=== PATIENT | female | born 1990 | race Caucasian/White ===

== ENCOUNTER 2017-04-03 15:54 | Inpatient (IN) ==
[2017-04-03] MEDS ORDERED: Naloxone 0.4 MG/ML INJ IVP PRN (16:11)
[2017-04-03] MEDS ORDERED: Ondansetron 4 MG/2 ML VIAL IVP PRN (16:11)
[2017-04-03] MEDS ORDERED: Famotidine 20 MG/2 ML VIAL IVP PRN (16:11)
[2017-04-03] MEDS ORDERED: *HR* Nalbuphine 20 MG/ML AMPUL IVP PRN (16:11)
[2017-04-03] MEDS ORDERED: miSOPROStol 25 MCG TABLET PO PRN (16:25)
[2017-04-03 17:40] LABS: Basophils % 0.3 %; Eosinophils # 0.1 K/mcL (0.0-0.6); Eosinophils % 0.7 %; Hemoglobin 11.3 g/dL (11.5-15.4); Immature Granulocytes % 0.3 % (0-4); Lymphocytes # 1.8 K/mcL (0.6-4.6); Lymphocytes % 23.5 %; Mean Corpuscular HGB Conc 34.2 g/dL (31.6-35.5); Mean Corpuscular Hemoglobin 29.7 pg (28.0-33.3); Mean Corpuscular Volume 86.8 fL (83.0-100.0); Mean Platelet Volume 11.2 fL (9.4-12.4); Monocytes # 0.6 K/mcL (0.0-1.3); Monocytes % 7.2 %; Neutrophils # 5.2 K/mcL (1.6-8.9); Platelet Count 225 K/mcL (140-400); Red Cell Distribution Width 11.9 % (11.5-14.5)
--- NOTE | 2017-04-03 17:47 | OB/GYN History & Physical ---
Date of Encounter: 04/03/17 Time of Encounter: 17:42 Assessment and Plan (1) Elective induction of labor planned Current visit: Yes Status: Acute Patient is here for Induction of Labor due to gestational diabetes. Induction with cytotec and fulton placed by CNM CBC UDS LR 125ml/hr Glucose checks q4hrs Continue monitoring, (2) 38 weeks gestation of Current visit: Yes Status: Acute Patient is 38w1d (3) Gestational diabetes Current visit: Yes Status: Acute Patient has gestational diabetes. States that it has been well controlled. Takes Glyburide POC glucose checks q4hrs Qualifiers: Gestational diabetes mellitus control: oral hypoglycemic-controlled Trimester: third trimester Qualified Code(s): O24.415 - Gestational diabetes mellitus in , controlled by oral hypoglycemic drugs History of Present Illness Chief complaint: Induction of Labor HPI: Ms. Tenorio is a 26 year old female at 38w1d presents to labor and delivery for induction of labor. Patient states that the has been complicated by uncontrolled gestational diabetes. States that she was seen at [facility] and they recommended insulin and pt refused. [facility] states due to lack of glucose control they recommend that she deliver at 38 weeks. Patient denies any contractions, vaginal bleeding, loss of fluid or discharge. Reports good movement. She states that she has been checking her blood sugar and the majority of them have been at goal or below. Reports most recent blood sugar of 107. States that the induction was scheduled by Dr. Perez and Dr. Mckoy. Blood type O negative GBS negative Rubella IgG antibody Positive VZV IgG Antibody Positive All other serologies negative Past Med Surg Social Fam HX - Past Medical History Medical history: no medical history, other (Fracture of her neck when she was 17 ) Psychiatric history: depression - Social History Smoking Status: Former smoker Smokeless Tobacco Status: No Alcohol use: none Drug use: none - Family History Mother Hx Family Musculoskeletal Disorders: Yes (neck surgery) Obstetrical History - Pregnancies : 1 Para: 0 Term: 0 : 0 Ab's: 0 Livin - History/Complications History/Complications: Patient has gestational diabetes and takes glyburide. reports that he blood sugar has been well controlled. Medications and Allergies Citalopram [CeleXA] 20 mg PO DAILY 04/03/17 [History] Vit/Iron Fumarate/FA [ Tablet] 04/03/17 [History] glyBURIDE [GlyBURIDE] 3.75 mg PO 2200 04/03/17 [History] 3 Allergy/AdvReac Type Severity Reaction Status Date / Time No Known Allergies Allergy Verified 04/03/17 17:09 Review of System OB All systems PM: reviewed and no additional remarkable complaints except as stated Exam - Constitutional Constitutional: well developed, well nourished, no acute distress, average body habitus - HEENT HEENT: Normocephaly, Mucus Membranes Moist - Neck Neck exam: full ROM, normal inspection - Lungs Respiratory exam: CTAB - Cardiovascular Cardiovascular exam: RRR, +S1, +S2 - Abdomen Abdomen: Present: bowel sounds normal, gravid, non tender - Extremities Extremities exam: full ROM, normal capillary refill, normal inspection - Vagina Vagina: Present: normal moisture - Cervix Dilation: 1 (Per bird tender) Effacement: 25 (Per Chief Vendor Quality) Station: -3 (Per Chief Vendor Quality) - Anus/Rectum Anus/Rectum: Present: normal perianal skin Results Result Diagrams: 04/03/17 17:36 04/03/17 17:36 Abnormal lab results RBC 3.80 M/mcL (3.82-4.97) L 04/03/17 17:36 Hgb 11.3 g/dL (11.5-15.4) L 04/03/17 17:36 Hct 33.0 % (35.3-44.9) L 04/03/17 17:36 All other labs normal. - VTE Reasons for not Prescribing Prophylaxis: Treatment not Indicated - Low risk for VTE
[2017-04-03 18:03] LABS: Amphetamine Screen,Urine Negative ng/mL (Cutoff=1000); Barbiturate Screen,Urine Negative ng/mL (Cutoff=200); Benzodiazepines Screen,Urine Negative ng/mL (Cutoff=200); Cannabinoid Screen,Urine Negative ng/mL (Cutoff = 50); Cocaine Screen,Urine Negative ng/mL (Cutoff= 300); Opiate Screen,Urine Negative ng/mL (Cutoff=300); Phencyclidine Screen,Urine Negative ng/mL (Cutoff=25)
--- NOTE | 2017-04-03 19:46 | OB Labor Progress Note ---
Date of Encounter: 04/03/17 Time of Encounter: 19:44 Labor Progress Note - Subjective Subjective: Pt starting to feel some cramping - Cervix Cervix: cervical fulton remains in place - Heart Tones Heart Tones: 135/moderate/+accels/-decels - Kenney Kenney: rare - Plan Plan: Continue current management Anticipate
[2017-04-03] MEDS ORDERED: D5% in Lactated Ringers 1,000 ML IVC SCH (23:15)
--- NOTE | 2017-04-03 23:21 | OB Labor Progress Note ---
Date of Encounter: 04/03/17 Time of Encounter: 23:19 Labor Progress Note - Subjective Subjective: Pt states feeling some cramping but otherwise comfortable. - Vital Signs Vital Signs: Blood glucose 78, LR was not started by nursing staff, will start D5LR - Cervix Cervix: Cervical fulton remains in place - Heart Tones Heart Tones: 135/moderate/-accels/-decels - Addy Addy: 3-5 - Plan Plan: Continue current management. Give 50mcg cytotec if contractions space out fulton removal at 0600 if not expelled Start D5LR@75 recheck glucose in 2 hours. anticipate
[2017-04-03] MEDS ORDERED: D5% in Lactated Ringers 1,000 ML IVC ONE (23:24)
[2017-04-04] MEDS ORDERED: Oxytocin 20 units/ LR 1000 mL 20 UNIT/1,000 ML BAG IVC ONE (00:29)
[2017-04-04] MEDS ORDERED: Oxytocin 20 units/ LR 1000 mL 20 UNIT/1,000 ML BAG IVC SCH ×2 (00:45→20:49)
[2017-04-04] MEDS ORDERED: D5% in Lactated Ringers 1,000 ML IVC SCH (05:59)
[2017-04-04] MEDS ORDERED: Ringers Solution, Lactated 1,000 ML IVC SCH ×2 (06:00→20:49)
[2017-04-04] MEDS: Ringers Solution, Lactated 1,000 ML IVC SCH ×2 (06:17→14:38)
--- NOTE | 2017-04-04 06:59 | OB Labor Progress Note ---
Date of Encounter: 04/04/17 Time of Encounter: 06:57 Labor Progress Note - Subjective Subjective: Pt states she feels stronger contractions - Cervix Cervix: 4/50/-2 - Heart Tones Heart Tones: 13/moderate/-accels/-decels - Pillow Pillow: q2 - Plan Plan: Continue pitocin per policy Nubain and Epidural as desired Anticipate
--- NOTE | 2017-04-04 08:10 | Anesthesia Evaluation PreOp ---
Date of Encounter: 04/04/17 Time of Encounter: 08:04 - Past History Planned Operation: vaginal del, Cardiac History: Arrhythmia (SA, cardiac workup was negative in the beginning of preg..METs > 4 without comp.) Pulmonary History: Denies Any Significant HX COST RECORDER History: Denies Any Significant HX Other Medical History: Other (gestational DM, oral meds currently) Anesthesia History: No Prior Anesthetic Complications Alcohol Use: none Drug use: none Medications and Allergies Citalopram [CeleXA] 20 mg PO DAILY 04/03/17 [History] Vit/Iron Fumarate/FA [ Tablet] 04/03/17 [History] glyBURIDE [GlyBURIDE] 3.75 mg PO 2200 04/03/17 [History] 3 Allergy/AdvReac Type Severity Reaction Status Date / Time No Known Allergies Allergy Verified 04/03/17 17:09 Anesthesia Results - Labs 04/03/17 17:36 04/03/17 17:36 Anesthesia Exam - HEENT Pupil (Motor): Pupils equal Mallampati: I Teeth: Normal Oral Opening: Greater than 3 - COST RECORDER LOC: Oriented COST RECORDER Motor: Normal RUE, Normal LUE, Normal RLE, Normal LLE, Normal Face COST RECORDER Sensory: Normal: RUE, LUE, RLE, LLE, Face - Cardiac Rhythm: Regular Murmur: None - Pulmonary Breath Sounds: bilateral Clear Respiratory Effort: Symmetrical Anesthesia Assess/Plan ASA Score: 2 Modified [place] Scale for Level of Consciousness: Cooperative, oriented, and tranquil Anesthetic Plan: General, Regional Monitoring Plan: Standard Monitors
--- NOTE | 2017-04-04 10:13 | OB Labor Progress Note ---
Date of Encounter: 04/04/17 Time of Encounter: 10:11 Labor Progress Note - Subjective Subjective: Patient doing well. Discussed POC with patient. Patient denies any questions or concerns. - Heart Tones Heart Tones: 135 bpm moderate variability +15x15 accels noted no decels noted. Cat. 1 tracing. - [place]: 2-3 min apart - Interventions Interventions: Discussed POC, discontinued D5LR at this time. - Plan Plan: Continue labor management.
--- NOTE | 2017-04-04 11:50 | OB Labor Progress Note ---
Date of Encounter: 04/04/17 Time of Encounter: 11:48 Labor Progress Note - Subjective Subjective: Patient doing well. Denies any questions or concerns. Discussed POC with patient. - Cervix Cervix: 4.5/80/-1 - Heart Tones Heart Tones: 135 bpm moderate variability +15x15 accels no decels noted. Cat 1 tracing - [place]: 2-3 min apart - Interventions Interventions: SVE, AROM copious amount of clear fluid noted. Patient tolerated well - Plan Plan: Continue labor management
[2017-04-04] MEDS ORDERED: Epidural Premix (fent/bupiv) 110 ML EP ONE (14:45)
[2017-04-04] MEDS ORDERED: EPHEDrine 50 MG/ML VIAL ONE (15:10)
--- NOTE | 2017-04-04 15:13 | Anesthesia Procedures ---
Date of Encounter: 04/04/17 Time of Encounter: 14:57 Procedures: Anesthesia - Epidural/Spinal Patient ID/Chart reviewed: Yes Patient examined: Yes OB Eval: Gestational age: term OB Eval: : 1 OB Eval: Hx Para: 0 OB Eval: Contractions: Non-stressed pattern Consent Obtained: Yes Supplemental Oxygen: None/Room Air Site Prep: Aseptic Technique, Sterile prep and drape, 0.5% Chlorhexidine/Alcohol Patient position: upright Local Anesthetic: Lidocaine 1% Amount of Local Anesthetic used: 2 Touhy Needle Gauge: 18 Touhy Needle Depth (cm): 5 Catheter Depth at Skin (cm): 10 Test Dose (1.5% Lido + Epi): Volume given (mls): 3 Test Dose Result: Negative Loading Dose: Other: 10ml from solution Loading Dose Administered: Thru Catheter Infusion Med: 0.125% Bupivacaine w/ 2 mcg/ml Fentanyl Infusion Rate (mls/hr): [address]: Tegaderm, Tape Interspace Used: L3-L4 Loss of Resistance (SOMMER): Yes (saline) Blood: No CSF: No Paresthesia: No Procedure: vss though out procedure, FHR stable per rn's
[2017-04-04] MEDS ORDERED: *HR* Oxytocin 10 UNIT/ML VIAL IM ONE ×2 (16:28→16:40)
[2017-04-04] MEDS ORDERED: *HR* Morphine Sulfate/PF 5 MG/10 ML AMPUL ONE (16:31)
[2017-04-04] MEDS ORDERED: Ondansetron 4 MG/2 ML VIAL ONE (16:38)
[2017-04-04] MEDS ORDERED: Lidocaine/EPI 1:200k 2% PF 20 ML VIAL ONE ×2 (16:59→17:00)
[2017-04-04] MEDS ORDERED: Ringers Solution, Lactated 1,000 ML ONE (17:02)
[2017-04-04] MEDS ORDERED: *HR* Promethazine 25 MG/ML VIAL IVP PRN (17:18)
[2017-04-04] MEDS ORDERED: *HR* HYDROmorphone (PF) 1 MG/ML SYRINGE IVP PRN ×3 (17:18→20:49)
--- NOTE | 2017-04-04 17:32 | OB/GYN Procedure Note ---
Section - Date of procedure: 04/04/17 Preop diagnosis: category 2 FHT tracing Post-op diagnosis: same (Nuchal 2 tight) Procedure: primary low transverse Surgeon: Wojciech Mckoy Estimated blood loss (cc): 500 Anesthesiologist: Darwin Michel Anesthesia Type: Epidural section complications: none Disposition: PACU Specimens: Placenta - (s) A Delivery Date: 04/04/17 Infant Delivery Time: 16:31 Presentation: vertex Position: MAGGIE Gender: Male Viability: Viable Pounds: 7 Ounces: 7 at 1 minute: 8 at 5 minutes: 9 Placenta: complete extraction Cord: nuchal cord (x 2 ; tight) - Narrative Narrative: Patient was taken to the operating room. After satisfactory epidural anesthesia was achieved, she was prepped and draped in usual manner. After appropriate timeout, abdomen was entered through standard Maylard incision. The Jayla retractor was placed. The peritoneum overlying the lower uterine segment was incised in U-shaped fashion. Uterine cavity was entered sharply and extended laterally. With fundal pressure the head was delivered. suctioned upon delivery of the head. Nuchal cord was relieved 2. The remainder of the infant was delivered. The umbilical cord was doubly clamped and cut and baby was handed to nursery staff for further evaluation. Placenta was removed as pathology for analysis. Uterus was closed in single layer using 0 Monocryl. After assurance of hemostasis, the abdomen was closed in standard fashion using 0 Vicryl in the fascia and 3-0 Monocryl in the skin. Sterile dressing was applied. Patient did well was taken to recovery room in satisfactory condition. Counts were correct.
[2017-04-04] MEDS ORDERED: *HR* Morphine 2 MG/ML SYRINGE IVP PRN ×2 (18:42→20:49)
--- NOTE | 2017-04-04 18:47 | Anesthesia Evaluation Post Op ---
Date of Encounter: 04/04/17 Time of Encounter: 18:41 - Vital Signs Vital Signs: vss - Lungs Lungs: Clear Ascult./Percussion - Airway Airway: Non-obstructed - Mental Status Mental Status: Alert & Oriented, Answers Appropriately - Pain Pain Scale used: Arpit (Faces) - Nausea Vomiting Nausea Vomiting: Not Present - Hydration Hydration: Esposito catheter - Discharge PostOp Status: Transfer Patient to floor
[2017-04-04] MEDS ORDERED: Metoclopramide 10 MG/2 ML VIAL IVP PRN (20:49)
[2017-04-04] MEDS ORDERED: Rho Immune Globulin 1,500 UNIT SYRINGE IM ONE (20:49)
[2017-04-04] MEDS ORDERED: Naloxone 0.4 MG/ML INJ IVP PRN (20:49)
[2017-04-04] MEDS ORDERED: Simethicone 80 MG TAB.CHEW PO PRN (20:49)
[2017-04-04] MEDS ORDERED: Ondansetron 4 MG/2 ML VIAL IVP PRN ×2 (20:49)
[2017-04-04] MEDS ORDERED: Sennosides 8.6 MG TABLET PO PRN (20:49)
[2017-04-04] MEDS: Ibuprofen 600 MG TABLET PO PRN (21:59)
[2017-04-04] MEDS ORDERED: *HR* GlyBURIDE 2.5 MG TABLET PO SCH (22:00)
[2017-04-05] MEDS: *HR* OxyCODONE/APAP 5/325 TABLET PO PRN ×2 (00:58→21:49)
[2017-04-05 04:47] LABS: Basophils % 0.2 %; Eosinophils % 0.2 %; Hematocrit 24.3 % (35.3-44.9); Hemoglobin 8.3 g/dL (11.5-15.4); Immature Granulocytes % 0.2 % (0-4); Lymphocytes # 1.7 K/mcL (0.6-4.6); Lymphocytes % 20.6 %; Mean Corpuscular HGB Conc 34.2 g/dL (31.6-35.5); Mean Corpuscular Hemoglobin 30.1 pg (28.0-33.3); Mean Platelet Volume 10.9 fL (9.4-12.4); Monocytes # 0.6 K/mcL (0.0-1.3); Monocytes % 7.3 %; Neutrophils # 5.9 K/mcL (1.6-8.9); Platelet Count 156 K/mcL (140-400); Red Blood Count 2.76 M/mcL (3.82-4.97); Red Cell Distribution Width 12.1 % (11.5-14.5); Segmented Neutrophils % 71.5 %
[2017-04-05] MEDS: Ibuprofen 600 MG TABLET PO PRN ×2 (05:16→14:00)
--- NOTE | 2017-04-05 08:15 | OB/GYN Progress Note ---
Date of Encounter: 04/05/17 Time of Encounter: 08:13 - Assessment and Plan (1) S/P section Current Visit: Yes Status: Acute Patient is S/P C section POD #1. Viable male was delivered at 1631 on 04/04/17. Patient states that she is feeling pretty good today. States that she has only taken a few steps today otherwise she has been sleeping. States that she has only eaten a few cracker and has been drinking water. Tolerating PO without issues. Denies urination since her catheter was taken out. Denies flatus or having a bowel movement. Report that she is still having some vaginal bleeding. States that she plans to breast feed. Encourage ambulation as tolerated PO intake as tolerated Pain well managed on po pain medication Anticipate DC tomorrow. (2) Gestational diabetes Current Visit: Yes Status: Acute Patient had gestational diabetes. Most recent poc glucose was 73. Discontinue the oral hypoglycemic medications Qualifiers: Gestational diabetes mellitus control: oral hypoglycemic-controlled Trimester: third trimester Qualified Code(s): O24.415 - Gestational diabetes mellitus in , controlled by oral hypoglycemic drugs (3) Anemia, Current Visit: Yes Status: Acute Patient has a Hgb of 8.3 Ferrous sulfate has been ordered Subjective - Subjective Principal diagnosis: S/P C Section Delivery Interval history: Patient is S/P day 1 from a C section. Viable male was delivered at 1631 on 04/09. Patient states that she is feeling pretty good today. States that she has only taken a few steps today otherwise she has been sleeping. States that she has only eaten a few cracker and has been drinking water. Tolerating PO without issues. Denies urination since her catheter was taken out. Denies flatus or having a bowel movement. Report that she is still having some vaginal bleeding. States that she plans to breast feed Patient reports: appetite normal (Has only eaten a few crackers, now has eaten pancakes ), pain well controlled, no voiding normally (Has not voided since catheter has been taken out), no ambulating normally, no nauseated [place]: doing well Objective - Vital Signs Latest vital signs: Vital Signs Temp Pulse Resp BP Pulse Ox 04/05/17 05:10 98.2 F 89 14 101/61 97 04/04/17 22:15 98.0 F 86 14 108/63 97 04/04/17 21:15 98.2 F 88 14 112/61 96 04/04/17 20:15 97.9 F 89 14 104/57 97 04/04/17 19:45 97.7 F 87 14 106/64 98 04/04/17 19:15 98.3 F 87 16 116/75 98 Intake and Output 04/04/17 04/05/17 04/05/17 23:59 07:59 15:59 Intake Total 600 / 600 Output Total 350 / 350 325 / 325 Balance -350 / -350 275 / 275 Intake: Oral 600 / 600 Output: Catheter 350 / 350 325 / 325 Other: Weight 116.3 kg 80.399 kg Blood Glucose* 135 Patient Weight 04/05/17 23:59 Weight 80.399 kg - Exam Lungs: bilateral: normal Chest: Normal S1, Normal S2 Extremities: Present: normal. Absent: tenderness Abdomen: Present: normal appearance, soft Incision: Present: dry, dressed Uterus: Present: firm Fundal Height: 1 (Below the Umbilicus) - Labs Labs: Laboratory Results - last 24 hr 04/04/17 04/04/17 04/04/17 09:02 13:01 16:22 WBC RBC Hgb Hct MCV MCH MCHC RDW Plt Count MPV Immature Gran % Seg Neutrophils % Lymphocytes % Monocytes % Eosinophils % Basophils % Neutrophils # Lymphocytes # Monocytes # Eosinophils # Basophils # POC Glucose 115 H 109 H 111 H Baby's Blood Type Mother's Blood Type Rhogam Indicated 04/04/17 04/05/17 04/05/17 18:20 01:01 04:31 WBC 8.2 RBC 2.76 L Hgb 8.3 L D Hct 24.3 L MCV 88.0 MCH 30.1 MCHC 34.2 RDW 12.1 Plt Count 156 MPV 10.9 Immature Gran % 0.2 Seg Neutrophils % 71.5 Lymphocytes % 20.6 Monocytes % 7.3 Eosinophils % 0.2 Basophils % 0.2 Neutrophils # 5.9 Lymphocytes # 1.7 Monocytes # 0.6 Eosinophils # 0.0 Basophils # 0.0 POC Glucose 135 H Baby's Blood Type A RH NEGATIVE Mother's Blood Type O RH NEGATIVE Rhogam Indicated NO 04/05/17 07:58 WBC RBC Hgb Hct MCV MCH MCHC RDW Plt Count MPV Immature Gran % Seg Neutrophils % Lymphocytes % Monocytes % Eosinophils % Basophils % Neutrophils # Lymphocytes # Monocytes # Eosinophils # Basophils # POC Glucose 73 Baby's Blood Type Mother's Blood Type Rhogam Indicated
[2017-04-05] MEDS: Prenatal Vit/FA 1 EACH TABLET PO SCH (09:46)
[2017-04-06] MEDS: Ibuprofen 600 MG TABLET PO PRN (06:13)
[2017-04-06 07:51] VITALS: BP 99/69
[2017-04-06] MEDS: *HR* OxyCODONE/APAP 5/325 TABLET PO PRN (09:14)
[2017-04-06] MEDS: Prenatal Vit/FA 1 EACH TABLET PO SCH (09:15)
--- NOTE | 2017-04-06 09:21 | Discharge Summary ---
Date of Encounter: 04/06/17 Time of Encounter: 09:18 - Discharge Diagnosis (1) S/P section Priority: Primary Status: Acute Comments: Patient underwent due to category 2 FHT tracings without complications Incision appears well, no drainage, closed, patient reports pain well controlled Ambulating, tolerating PO, voiding bowel and bladder, and vaginal bleeding is minimal Ibuprofen prn for pain and colace for constipation (2) Depression Priority: Secondary Status: Acute Comments: Patient reports a good mood at this time. Requesting to be placed back on her citalopram for her chronic depression. Qualifiers: Depression Type: unspecified Qualified Code(s): F32.9 - Major depressive disorder, single episode, unspecified (3) Blood glucose elevated Priority: Secondary Status: Acute Comments: Patient has hx of poorly controlled GDM throughout treated with glyburide Patient had elevated blood glucose in 140's this morning and states she hadn't fast prior Discussed with patient plan to do a fasting blood glucose, pending results will place patient on metformin if necessary - Discharge Medications Prescriptions: Ibuprofen [Motrin] 600 mg PO Q6HR PRN #30 tablet PRN Reason: Cramping Breast Pump [BREAST PUMP] 1 each .ROUTE AD #1 each Citalopram [CeleXA] 20 mg PO DAILY #30 tablet Docusate [Colace] 100 mg PO BID PRN #30 capsule PRN Reason: Constipation Ferrous Sulfate 325 mg PO DAILY #60 tablet Home Medications: Vit/Iron Fumarate/FA [ Tablet] 04/03/17 [History] glyBURIDE [GlyBURIDE] 3.75 mg PO 2200 04/03/17 [History] Breast Pump [BREAST PUMP] 1 each .ROUTE AD #1 each 04/06/17 [Rx] Citalopram [CeleXA] 20 mg PO DAILY #30 tablet 04/06/17 [Rx] Docusate [Colace] 100 mg PO BID PRN #30 capsule 04/06/17 [Rx] Ferrous Sulfate 325 mg PO DAILY #60 tablet 04/06/17 [Rx] Ibuprofen [Motrin] 600 mg PO Q6HR PRN #30 tablet 04/06/17 [Rx] Allergies/Adverse Reactions: 3 Allergy/AdvReac Type Severity Reaction Status Date / Time No Known Allergies Allergy Verified 04/03/17 17:09 Data Procedures and tests throughout hospitalization: Laboratory Tests 04/03/17 04/03/17 04/03/17 17:36 17:36 17:36 WBC 7.7 RBC 3.80 L Hgb 11.3 L Hct 33.0 L MCV 86.8 MCH 29.7 MCHC 34.2 RDW 11.9 Plt Count 225 MPV 11.2 Immature Gran % 0.3 Seg Neutrophils % 68.0 Lymphocytes % 23.5 Monocytes % 7.2 Eosinophils % 0.7 Basophils % 0.3 Neutrophils # 5.2 Lymphocytes # 1.8 Monocytes # 0.6 Eosinophils # 0.1 Basophils # 0.0 Glucose 106 H POC Glucose Urine Opiates Screen Negative Ur Barbiturates Screen Negative Ur Phencyclidine Scrn Negative Ur Amphetamines Screen Negative U Benzodiazepines Scrn Negative Urine Cocaine Screen Negative U Marijuana (THC) Screen Negative Baby's Blood Type Mother's Blood Type Rhogam Indicated 04/03/17 04/03/17 04/04/17 18:59 23:03 01:00 WBC RBC Hgb Hct MCV MCH MCHC RDW Plt Count MPV Immature Gran % Seg Neutrophils % Lymphocytes % Monocytes % Eosinophils % Basophils % Neutrophils # Lymphocytes # Monocytes # Eosinophils # Basophils # Glucose POC Glucose 96 H 78 101 H Urine Opiates Screen Ur Barbiturates Screen Ur Phencyclidine Scrn Ur Amphetamines Screen U Benzodiazepines Scrn Urine Cocaine Screen U Marijuana (THC) Screen Baby's Blood Type Mother's Blood Type Rhogam Indicated 04/04/17 04/04/17 04/04/17 05:07 09:02 13:01 WBC RBC Hgb Hct MCV MCH MCHC RDW Plt Count MPV Immature Gran % Seg Neutrophils % Lymphocytes % Monocytes % Eosinophils % Basophils % Neutrophils # Lymphocytes # Monocytes # Eosinophils # Basophils # Glucose POC Glucose 138 H 115 H 109 H Urine Opiates Screen Ur Barbiturates Screen Ur Phencyclidine Scrn Ur Amphetamines Screen U Benzodiazepines Scrn Urine Cocaine Screen U Marijuana (THC) Screen Baby's Blood Type Mother's Blood Type Rhogam Indicated 04/04/17 04/04/17 04/05/17 16:22 18:20 01:01 WBC RBC Hgb Hct MCV MCH MCHC RDW Plt Count MPV Immature Gran % Seg Neutrophils % Lymphocytes % Monocytes % Eosinophils % Basophils % Neutrophils # Lymphocytes # Monocytes # Eosinophils # Basophils # Glucose POC Glucose 111 H 135 H Urine Opiates Screen Ur Barbiturates Screen Ur Phencyclidine Scrn Ur Amphetamines Screen U Benzodiazepines Scrn Urine Cocaine Screen U Marijuana (THC) Screen Baby's Blood Type A RH NEGATIVE Mother's Blood Type O RH NEGATIVE Rhogam Indicated NO 04/05/17 04/05/17 04/05/17 04:31 07:58 11:54 WBC 8.2 RBC 2.76 L Hgb 8.3 L D Hct 24.3 L MCV 88.0 MCH 30.1 MCHC 34.2 RDW 12.1 Plt Count 156 MPV 10.9 Immature Gran % 0.2 Seg Neutrophils % 71.5 Lymphocytes % 20.6 Monocytes % 7.3 Eosinophils % 0.2 Basophils % 0.2 Neutrophils # 5.9 Lymphocytes # 1.7 Monocytes # 0.6 Eosinophils # 0.0 Basophils # 0.0 Glucose POC Glucose 73 107 H Urine Opiates Screen Ur Barbiturates Screen Ur Phencyclidine Scrn Ur Amphetamines Screen U Benzodiazepines Scrn Urine Cocaine Screen U Marijuana (THC) Screen Baby's Blood Type Mother's Blood Type Rhogam Indicated 04/05/17 04/05/17 04/06/17 14:05 18:57 07:21 WBC RBC Hgb Hct MCV MCH MCHC RDW Plt Count MPV Immature Gran % Seg Neutrophils % Lymphocytes % Monocytes % Eosinophils % Basophils % Neutrophils # Lymphocytes # Monocytes # Eosinophils # Basophils # Glucose POC Glucose 118 H 130 H 149 H Urine Opiates Screen Ur Barbiturates Screen Ur Phencyclidine Scrn Ur Amphetamines Screen U Benzodiazepines Scrn Urine Cocaine Screen U Marijuana (THC) Screen Baby's Blood Type Mother's Blood Type Rhogam Indicated Labs on day of discharge: Labs from last 24 hours 04/06/17 04/05/17 04/05/17 07:21 18:57 14:05 POC Glucose 149 H 130 H 118 H 04/05/17 11:54 POC Glucose 107 H - Impressions ITS Impressions KUB X-Ray 04/04/17 16:44 IMPRESSION: No significant abnormalities in the abdomen. D/ / Jonatan Oshea MD / Jonatan Oshea MD Interpreting Provider: Jonatan Oshea MD Date of admission: 04/03/17 15:54 Primary care physician: Oleg Morley DO Discharging clinician: Courtney Portillo Anticipated date of discharge: 04/06/17 - Patient Status Disposition: Home, Self-Care Condition: Good Functional capacity at discharge: independent ambulation Overall status at discharge: patient is back to baseline - Discharge Instructions Follow Up With: Oleg Morley DO [Primary Care Provider] - - Diet and Activity Activity: resume usual activities as tolerated Diet: regular diet Hospital Course Reason for admission: induction of labor Delivery: section Episiotomy: none Laceration: none Other procedures: none complications: none Discharge diagnosis: IUP at term delivered [place] baby: male Hospital course: Patient is a 26F who presented on 04/03/17 for elective induction of labor. was complicated by uncontrolled gestational diabetes. Patient underwent with delivery of a viable male on 04/04/17 due to category 2 FHT tracing without complications. Patient reports no difficulty tolerating PO , no difficulty with ambulation, and is voiding bowel and bladder, and vaginal bleeding is improved. Patient reports a good mood at this time, she is requesting to be placed back on her citalopram for her depression. Patient also had an elevated blood glucose this morning and she reports that she was not fasting at that time. She is and does not have a pump at home. Time Attestation: Total time spent providing and/or coordinating discharge services: Time Spent: Less than 30 minutes - VTE Reasons for not Prescribing Prophylaxis: Treatment not Indicated - Low risk for VTE Documentation of Mechanical Device: Intermittent pneumatic compression device Exam - Constitutional Vitals: Temp Pulse Resp BP Pulse Ox 98.1 F 97 12 99/69 98 04/06/17 07:50 04/06/17 07:50 04/06/17 07:50 04/06/17 07:50 04/06/17 07:50 General appearance IM: A&O X 3, no acute distress - Respiratory Respiratory exam: Present: CTAB. Absent: rales, respiratory distress, rhonchi - Cardiovascular Cardiovascular exam IM: Present: RRR, +S1, +S2 - GI/Abdominal GI/Abdominal exam IM: normal bowel sounds, soft Incision: normal, dry, intact - Uterine Tone: Firm - Extremities Exam Extremities exam IM: Present: full ROM, normal inspection. Absent: calf tenderness - Neurological Exam Neurological exam: alert, normal gait, oriented X3, no focal deficits, strengths equal and symetr throughout - Psychiatric Additional comments: Patient states she is feeling overwhelmed at this time. Denies any depression right now.
== END 2017-04-06 13:58 | disposition home or self-care (01) | DRG 540 ==
LOC: 1NENULAB 15:54 → 1NENUOBS 04-04 19:12
PROVIDERS: ADMIT Obstetrics & Gynecology; ATTEND Obstetrics & Gynecology